=== PATIENT | female | born 1940 | race Caucasian/White ===

== ENCOUNTER → 2018-11-29 | Outpatient (CLI) | payer OTHER ==
[~2018-11-29] VITALS: Ht 157.5 cm; Wt 74.4 kg
[~2018-11-29] MED LIST: AMITRIPTYLINE H50 M2 PO; OXYCONTIN20 M1 PO
[2018-11-29 11:35] VITALS: BP 193/102
[2018-11-29 11:41] LABS: HEMATOCRIT 36.8 % (37.0-47.0); HEMOGLOBIN 12.3 gm/dL (12.0-15.0); MCH 28.6 pg (26.0-34.0); MCHC 33.5 g/dL (28.0-37.0); MCV 85.5 fL (80.0-100.0); RBC 4.3 mil/uL (4.20-5.00); RDW 15.1 % (10.5-14.5); WBC 7.5 thou/uL (4.0-11.0)
[2018-11-29 11:43] LABS: CALCIUM 9.5 mg/dL (8.5-10.1); CREATININE 1.2 mg/dL (0.6-1.0); POTASSIUM 4.6 mmol/L (3.5-5.1)
--- NOTE | 2018-12-01 13:14 | EKG ---
[place] [address] [address] [facility] [place] [address] ELECTROCARDIOGRAM REPORT Name: RANDAL GAY Room #: REG [facility] [id number] ������������������ Admission: 11/29/18 ������������������ Attend Phys: Fabian Nance Discharge: ������������������ Date of : 44 Report #: [id number] ����������������������������������������������������������������� [id number] THIS REPORT FOR: //name// [facility] Test Date: 2018-11-29 Test Time: 11:05:48 Pat Name: RANDAL GAY Department: Room: Gender: F Kennel Manager Dog Track: Keri CASTELLANOS : 1940 Requested By: Fabian Nance Order Number: [id number] MD: Esteban Wright Measurements Intervals [place] Rate: 95 P: 50 NV: 223 QRS: -27 QRSD: 137 T: 12 QT: 402 QTc: 506 Interpretive Statements Sinus rhythm Prolonged NV interval Right bundle branch block No previous ECG available for comparison Electronically Signed On 12-01-2018 13:14:29 CDT by Esteban Wright [email or web address] ��������������������������������������������� <ELECTRONICALLY SIGNED> ���������������������������������������� By: Esteban Wright MD, [facility] ��������������������������������������������� 12/01/18 1314 1105 1105 Esteban Wright MD, FACC /EPI
--- NOTE | 2018-12-02 12:45 | CATHLAB ---
[facility] [address] [place] [address] INVASIVE PROCEDURE REPORT Name: DEIDRARANDAL K [facility]: [facility] [id number] ������������� Admission: 11/29/18 ������������� Attend Phys: Fabian Shay Discharge: ��� ������������� ��� Date of : 44 Date of Service: 12/02/18 1245 �� Report #: [id number] �������� ��������������������������������������������[id number] THIS REPORT FOR: //name// APPROVED REPORT Study performed: 11/29/2018 10:49:34 Patient Details Patient Status: Out-Patient Room #: The patient is a 78 year-old female Event Personnel Fabian Nance Service Desk Lead, Pedro Brandon RN RN, Kenji Palomo Brown, Roberta Monitor Procedures Performed Art Access - R femoral artery* 56157 Initial Mod Sed Same Phys/QHP Gr5y 148420 62516 Mod Sed Same Phys/QHP Ea 324086 Left Heart Cath w/or w/o Coronaries [id number] [facility] FFR [id number] FFR Hemostasis w/ Mynx revision of conscious sedation Indication Positive stress test, Chest pain Procedure Narrative The Right Groin^ was infiltrated with 1% Lidocaine subcutaneous anesthesia. A PINNACLE 4FR Sheath #[id number] sheath was inserted into the RFA 4F^. Coronary angiography was performed using coronary diagnostic catheters. The right coronary system was accessed and visualized with a jr4 catheter. The left coronary system was accessed and visualized with a jl4 catheter. The left ventricle was accessed and visualized with a angle pig catheter. The patient tolerated the procedure well and there were no complications associated with the procedure. Intraoperative Conscious Sedation Sedation start time: 1218 Case end Time: 1300 Versed 3 mg Fluoro Time: 3.32 minutes Dose: DAP 19263.80 cGycm2 320 mGy Contrast Type and Amount: Omnipaque 70 ml Coronary Angiography [facility] [employer] [address] INVASIVE PROCEDURE REPORT Name: RANDAL GAY Room #: REG [facility]#: [id number] ������������� Admission: 11/29/18 ������������� Attend Phys: Fabian Shay Discharge: ��� ������������� ��� Date of : 44 Date of Service: 12/02/18 1245 �� Report #: [id number] �������� ��������������������������������������������[id number] The patient's coronary anatomy is right dominant. Diagnostic Cath Left Main Moderate to large caliber vessel of normal origin. Bifurcates that into descending left circumflex. Has some small 20% eccentric lesion distally which is not flow-limiting LAD All to moderate caliber vessel which courses in the anterior interventricular sulcus giving rise to septal and diagonal branches. Her statins a miniscule vessel with a high-grade ostial lesion present. The vessel then rapidly tapers with a segment of approximately 15-20 mm of eccentric lesions which appear to be between 60 and 70%. There is evidence of possibly a myocardial bridging near the distal portion of the segment. The LAD then continues reconstitutes in the anterior interventricular sulcus free of high-grade disease and terminates post-rest left ventricle Diagonal 1 Diminutive caliber vessel with a high-grade ostial lesion Diagonal 2 Small-caliber vessel with a high-grade ostial lesion Circumflex Moderate caliber vessel with his right is small insignificant caliber marginal branch. And continues posteriorly giving rise to a posterior lateral wall marginal branches courses towards the apex free of high-grade disease. Circumflex proper then terminates as a posterior wall branches. There is a mild irregularities in its mid course prior to the origin of the lateral wall marginal branch OM1 Small caliber vessel without high-grade lesions Right Coronary Large-caliber vessel of normal origin. In its proximal course is a 30% taper and then continues on to the acute margin with isn't eccentric lesion of under 50%. It is focal and nonflow limiting. The vessel then continues on giving rise to small descending and several posterior wall branches R PDA Small-caliber vessels without significant Left Ventriculography Left Ventriculography was not performed. IVUS Fractional Flow [place] was performed on the mid left anterior descending artery segment vessel. A 6 [place] [employer] FL 4 Guide Catheter was used to engage the left coronary ostium. A FFR wire was used. IVUS Findings After equalization was performed per protocol the adenosine infusion [facility] [address] [place] [address] INVASIVE PROCEDURE REPORT Name: DEIDRARANDAL K Room #: REG [facility] Marley#: [id number] ������������� Admission: 11/29/18 ������������� Attend Phys: Fabian Shay Discharge: ��� ������������� ��� Date of : 44 Date of Service: 12/02/18 1245 �� Report #: [id number] �������� ��������������������������������������������[id number] was initiated. The minimum readings of 0.86 - .87 was noted. Patient tolerated procedure well no complications Hemodynamics The aortic pressure is 211/105 mmHg with a mean of 146 mmHg. The left ventricular pressure is 183/12 mmHg with a mean of mmHg. The left ventricular end diastolic pressure is 22 mmHg. PCI Technique Lesion A LAUNCHER 6FR JL4 #[id number] Guide Catheter was used to engage the ostium. A Aeris Pressure Wire 175 cm [id number] Interventional Guidewire was used to cross the lesion. BALLOON DILATION FFR PRE FELICITAS. 97 - LOWEST FFR READING 85. PCI Technique Lesion The lesion stenosis prior to intervention was mid left anterior descending artery segment% with KERVIN 6 Kazakh [employer] FL 4 flow. A left coronary Guide Catheter was used to engage the ostium. A FFR wire Interventional Guidewire was used to cross the lesion. BALLOON DILATION A Balloon catheter After equalization was performed per protocol the adenosine infusion was initiated. The minimum readings of 0.86 - .87 was noted. Patient tolerated procedure well no complications was inserted and inflated up to susan for seconds. Conclusion 1. Coronary artery disease, moderate, single vessel 2. Fractional flow reserve analysis not consistent with ischemia or significant lesion 3. Normal hemodynamics Recommendations Cardiac Risk Reduction Program Aggressive Medical Therapy ��������������������������������������������� <ELECTRONICALLY SIGNED> ���������������������������������������� By: Fabian Nance MD ��������������������������������������������� 12/02/18 1245 1245 1245 Fabian Nance MD /INF
== END | disposition home or self-care (01) ==
LOC: CATH 09:45
PROVIDERS: Internal Medicine
DX: I25.10 Atherosclerotic heart disease of native coronary artery without angina pectoris (principal); E11.9 Type 2 diabetes mellitus without complications; Z79.899 Other long term (current) drug therapy

== ENCOUNTER → 2019-11-04 | Outpatient (CLI) | payer OTHER | LOC: SJCVC 13:41 | DX: I44.0 Atrioventricular block, first degree (principal); I45.2 Bifascicular block; I25.119 Atherosclerotic heart disease of native coronary artery with unspecified angina pectoris; E78.5 Hyperlipidemia, unspecified; E11.9 Type 2 diabetes mellitus without complications ==